=== PATIENT | male | born 1950 | race Caucasian/White ===

== ENCOUNTER 2023-07-11 14:33 | Outpatient (AMB) | payer MEDICARE, SELFPAY ==
[2023-07-11 14:40] VITALS: BP 130/70; PULSE 71; O2SAT 99; BMI 33.7
--- NOTE | 2023-07-11 14:40 | HO.NEPHOV ---
HPI HPI Comments History of Present Illness Details I would the privilege of seeing Kulwinder in consultation for his CKD and hypertension. He is known to have hypertension for a long time. He has not a diabetic. He has dyslipidemia and is on statins. He had extensive workup and a secondary etiology was ruled out for his hypertension. He has diastolic dysfunction. He never had any coronary artery disease, CVA, congestive heart failure, known renal artery stenosis/ carotid stenosis or peripheral arterial disease. He claims to be compliant with his medications. He has not very strict with a low-sodium diet. He avoids excessive nonsteroidal anti-inflammatories. His last serum creatinine was 1.4. He denies any epistaxis, photosensitivity, new skin rashes, joint swellings, orthostatic symptoms, pedal edema or any other new systemic complaints. [facility] Medical History (Updated 07/12/23 @ 13:25 by Shade Hampton MD) Vitamin D deficiency Tubular adenoma of colon Chronic kidney disease, stage 3a Squamous cell carcinoma in situ Serrated polyp of colon RBBB Prediabetes DANIA (obstructive sleep apnea) Mild concentric left ventricular hypertrophy IFG (impaired fasting glucose) Hypogonadism male Hypertension Hyperlipidemia Hydrocele Granulomatous disease Diverticulitis Diastolic dysfunction Acute gastroenteritis Abdominal pain Surgical History S/P TURP (status post transurethral resection of prostate) H/O left knee surgery History of vasectomy Family History Mother CAD (coronary artery disease) Hypertension Brother Hypertension Valvular heart disease Social History (Updated 07/11/23 @ 14:42 by Dilcia Bautista MA) Alcohol intake: current Comment: Occasional Tobacco use type: Cigar and Pipe Vital Signs 07/11/23 14:40 Height 6 ft Weight 248 lb 4 oz BMI 33.7 BP 130/70 Blood Pressure Location Lt brachial Position Sitting Pulse 71 Pulse Source Pulse Oximeter Pulse Oximetry (%) 99 Oxygen Delivery Method Room Air Physical Exam Vital Signs: Last Vital Signs Pulse 71 07/11/23 14:40 BP 160/86 H 07/11/23 14:40 Pulse Ox 99 07/11/23 14:40 Oxygen Delivery Method Room Air 07/11/23 14:40 BMI result Body Mass Index 33.7 Const General: comfortable and no acute distress Orientation/consciousness: patient oriented x3 HEENT Head: Yes normocephalic Mouth: Normal oral and palatal mucosa present Eyes EOM: EOMs intact bilaterally Neck Neck: Yes supple Resp Auscultation: clear to auscultation bilaterally Cardio Jugular venous distension: no JVD Rate: regular rate GI Palpation (GI): Soft to palpation Auscultation: normal bowel sounds General: Yes no CVA tenderness Back/Spine/Pelvis Back: no CVA tenderness Skin General skin exam: no rashes or lesions noted Neuro General: patient oriented x3 and moves all extremities Extrem General: Yes no pedal edema Assessment & Plan Assessment & Plan (1) Hypertension: Code(s): I10 - Essential (primary) hypertension Qualifiers: Hypertension type: primary hypertension Qualified Code(s): I10 - Essential (primary) hypertension (2) Chronic kidney disease, stage 3a: Code(s): N18.31 - Chronic kidney disease, stage 3a Plan Kulwinder is known to have CKD stage 3 and hypertension for some time. His renal functions are currently stable. Has been extensively investigated and a secondary etiology for hypertension was ruled out. He needs to lose weight. He has dyslipidemia and is on statins. He is tolerating losartan, amlodipine and chlorthalidone well. He avoids nonsteroidal anti-inflammatories and maintain good hydration. He has a prediabetic. I had not make any medication changes today but rather discussed with him in extensive detail about his CKD, hypertension, its management and follow-up strategies. Follow-up blood work and urine studies ordered. All questions answered. Follow-up given. Orders: Orders Calcium 07/11/23 I10 - Essential (primary) hypertension, N18.31 - Chronic kidney disease, stage 3a Creatinine 07/11/23 I10 - Essential (primary) hypertension, N18.31 - Chronic kidney disease, stage 3a Electrolytes 07/11/23 I10 - Essential (primary) hypertension, N18.31 - Chronic kidney disease, stage 3a Blood Urea Nitrogen 07/11/23 I10 - Essential (primary) hypertension, N18.31 - Chronic kidney disease, stage 3a Protein Creatinine Ratio, Ur 07/11/23 I10 - Essential (primary) hypertension, N18.31 - Chronic kidney disease, stage 3a Coding Level of Care Code New Pt Level 4 (79280) Diagnoses Primary hypertension I10 Hypertension type: primary hypertension Chronic kidney disease, stage 3a N18.31 Results Reviewed Nephrology Results: No Data to Display
== END 2023-07-11 15:13 | disposition home or self-care (01) ==
PROVIDERS: Referring Provider Nurse Practitioner Gerontology; Visit Provider Internal Medicine Nephrology
DX: I10 Essential (primary) hypertension (principal); N18.31 Chronic kidney disease, stage 3a
CPT/HCPCS: 99204

== ENCOUNTER → 2023-07-11 14:33 | Outpatient (BNVA) | payer MEDICARE, SELFPAY | PROVIDERS: Referring Provider Nurse Practitioner Gerontology; Visit Provider Internal Medicine Nephrology | DX: I12.9 Hypertensive chronic kidney disease with stage 1 through stage 4 chronic kidney disease, or unspecified chronic kidney disease (principal); N18.31 Chronic kidney disease, stage 3a | CPT/HCPCS: 99202 ==

== ENCOUNTER 2023-10-10 13:23 | Outpatient (AMB) | payer MEDICARE, SELFPAY ==
--- NOTE | 2023-10-10 13:38 | HO.NEPHOV_ITS ---
Vital Signs 10/10/23 13:40 Height 6 ft Weight 245 lb 6 oz BMI 33.3 BP 120/74 Blood Pressure Location Lt brachial Position Sitting Pulse 75 Pulse Source Pulse Oximeter Pulse Oximetry (%) 95 Oxygen Delivery Method Room Air Intake Visit Reasons: 3 mon follow up/ Confirmed Mixer Diamond Powder Required: No Accompanied by: Self / Same As Patient Allergies lisinopril Allergy (Verified 10/10/23 13:42) Unknown HPI Comments Details: I would the privilege of seeing Kulwinder in consultation for his CKD and hypertension. He is known to have hypertension for a long time. He has not a diabetic. He has dyslipidemia and is on statins. He had extensive workup and a secondary etiology was ruled out for his hypertension. He has diastolic dysfunction. He never had any coronary artery disease, CVA, congestive heart failure, known renal artery stenosis/ carotid stenosis or peripheral arterial disease. He claims to be compliant with his medications. He has not very strict with a low-sodium diet. He avoids excessive nonsteroidal anti- inflammatories. His last serum creatinine was 1.4. He denies any epistaxis, photosensitivity, new skin rashes, joint swellings, orthostatic symptoms, pedal edema or any other new systemic complaints [facility] Medical History (Updated 07/12/23 @ 13:25 by Shade Hampton MD) Vitamin D deficiency Tubular adenoma of colon Chronic kidney disease, stage 3a Squamous cell carcinoma in situ Serrated polyp of colon RBBB Prediabetes DANIA (obstructive sleep apnea) Mild concentric left ventricular hypertrophy IFG (impaired fasting glucose) Hypogonadism male Hypertension Hyperlipidemia Hydrocele Granulomatous disease Diverticulitis Diastolic dysfunction Acute gastroenteritis Abdominal pain Surgical History S/P TURP (status post transurethral resection of prostate) H/O left knee surgery History of vasectomy Family History Mother CAD (coronary artery disease) Hypertension Brother Hypertension Valvular heart disease Social History Alcohol intake: current Comment: Occasional Tobacco use type: Cigar and Pipe Physical Exam Vital Signs: Last Vital Signs Pulse 75 10/10/23 13:40 BP 120/74 10/10/23 13:40 Pulse Ox 95 10/10/23 13:40 Oxygen Delivery Method Room Air 10/10/23 13:40 BMI result Body Mass Index 33.3 Const General: comfortable and no acute distress Orientation/consciousness: patient oriented x3 HEENT Head: Yes normocephalic Mouth: Normal oral and palatal mucosa present Eyes EOM: EOMs intact bilaterally Neck Neck: Yes supple Resp Auscultation: clear to auscultation bilaterally Cardio Jugular venous distension: no JVD Rate: regular rate GI Palpation (GI): Soft to palpation Auscultation: normal bowel sounds General: Yes no CVA tenderness Back/Spine/Pelvis Back: no CVA tenderness Skin General skin exam: no rashes or lesions noted Neuro General: patient oriented x3 and moves all extremities Extrem General: Yes no pedal edema Results Reviewed Nephrology Results: No Data to Display Assessment & Plan Assessment & Plan (1) Chronic kidney disease, stage 3a: Code(s): N18.31 - Chronic kidney disease, stage 3a Category: Medical (2) Hypertension: Code(s): I10 - Essential (primary) hypertension Category: Medical Qualifiers: Hypertension type: primary hypertension Qualified Code(s): I10 - Essential (primary) hypertension Plan Kulwinder is known to have CKD stage 3 and hypertension for some time. His renal functions had been stable. Has been extensively investigated and a secondary etiology for hypertension was ruled out. He needs to lose weight. He has dyslipidemia and is on statins. He is tolerating losartan, amlodipine and chlorthalidone well. He avoids nonsteroidal anti-inflammatories and maintain good hydration. He has a prediabetic. I had not make any medication changes today but rather discussed with him in extensive detail about his CKD, hypertension, its management and follow-up strategies. Follow-up blood work ordered. All questions answered. Follow-up given Orders: Orders Electrolytes Today I10 - Essential (primary) hypertension, N18.31 - Chronic kidney disease, stage 3a Creatinine Today I10 - Essential (primary) hypertension, N18.31 - Chronic kidney disease, stage 3a Blood Urea Nitrogen Today I10 - Essential (primary) hypertension, N18.31 - Chronic kidney disease, stage 3a Coding Level of Care Code Est Pt Level 4 (08624) Diagnoses Chronic kidney disease, stage 3a N18.31 Primary hypertension I10 Hypertension type: primary hypertension
[2023-10-10 13:40] VITALS: BP 120/74; PULSE 75; O2SAT 95; BMI 33.3
== END 2023-10-10 13:59 | disposition home or self-care (01) ==
PROVIDERS: Visit Provider Internal Medicine Nephrology
DX: N18.31 Chronic kidney disease, stage 3a (principal); I10 Essential (primary) hypertension
CPT/HCPCS: 99214

== ENCOUNTER 2023-10-10 13:59 | Outpatient (REF) | payer MEDICARE, SELFPAY ==
[2023-10-10 17:29] LABS: Anion Gap 14 (12-20); Blood Urea Nitrogen 30 mg/dL (9-16); Carbon Dioxide 27 mmol/L (22-29); Chloride 103 mmol/L (96-108); Estimated Glomerular Filt Rate 46; Potassium 3.1 mmol/L (3.3-5.1); Sodium 141 mmol/L (135-145)
== END 2023-10-10 14:00 | disposition home or self-care (01) ==
LOC: HO.HKASLDS 13:59
PROVIDERS: Visit Provider Internal Medicine Nephrology
DX: I12.9 Hypertensive chronic kidney disease with stage 1 through stage 4 chronic kidney disease, or unspecified chronic kidney disease (principal); N18.31 Chronic kidney disease, stage 3a; Z79.899 Other long term (current) drug therapy
CPT/HCPCS: 36415; 80051; 82565; 84520; 99212

== ENCOUNTER 2023-12-04 10:52 | Outpatient (REF) | payer MEDICARE, SELFPAY ==
[2023-12-04 14:29] LABS: Anion Gap 17 (12-20); Blood Urea Nitrogen 27 mg/dL (9-16); Calcium 9.6 mg/dL (8.4-10.2); Carbon Dioxide 29 mmol/L (22-29); Chloride 102 mmol/L (96-108); Estimated Glomerular Filt Rate 55; Potassium 2.9 mmol/L (3.3-5.1); Sodium 145 mmol/L (135-145)
== END 2023-12-04 10:53 | disposition home or self-care (01) ==
LOC: HO.WFDLDS 10:52
PROVIDERS: Visit Provider Internal Medicine Nephrology
DX: I12.9 Hypertensive chronic kidney disease with stage 1 through stage 4 chronic kidney disease, or unspecified chronic kidney disease (principal); N18.31 Chronic kidney disease, stage 3a
CPT/HCPCS: 36415; 80051; 82310; 82565; 84520

== ENCOUNTER 2024-04-18 09:46 | Outpatient (AMB) | payer MEDICARE, SELFPAY ==
--- NOTE | 2024-04-18 09:54 | HO.NEPHOV ---
Vital Signs 04/18/24 09:56 Height 6 ft Weight 238 lb 4 oz BMI 32.3 BP 116/62 Blood Pressure Location Lt brachial Position Sitting Pulse 79 Pulse Source Pulse Oximeter Pulse Oximetry (%) 96 Oxygen Delivery Method Room Air Intake Visit Reasons: 3 mon follow up-Conf Supervisor Assembly Required: No Accompanied by: Self / Same As Patient Allergies lisinopril Allergy (Verified 04/18/24 09:57) Unknown HPI Comments Details: Kulwinder was seen for his CKD and hypertension. He is known to have hypertension for a long time. He has not a diabetic. He has dyslipidemia and is on statins. He had extensive workup and a secondary etiology was ruled out for his hypertension. He has diastolic dysfunction. He never had any coronary artery disease, CVA, congestive heart failure, known renal artery stenosis/ carotid stenosis or peripheral arterial disease. He claims to be compliant with his medications. He avoids excessive nonsteroidal anti-inflammatories. His last serum creatinine was 1.3. He had been getting intermittent dizziness with all these BP medications. His serum potassium is better. [facility] Medical History (Updated 12/05/23 @ 09:01 by Shade Hampton MD) Vitamin D deficiency Tubular adenoma of colon Chronic kidney disease, stage 3a Squamous cell carcinoma in situ Serrated polyp of colon RBBB Prediabetes DANIA (obstructive sleep apnea) Mild concentric left ventricular hypertrophy IFG (impaired fasting glucose) Hypogonadism male Hypertension Hyperlipidemia Hydrocele Granulomatous disease Diverticulitis Diastolic dysfunction Acute gastroenteritis Abdominal pain Surgical History S/P TURP (status post transurethral resection of prostate) H/O left knee surgery History of vasectomy Family History Mother CAD (coronary artery disease) Hypertension Brother Hypertension Valvular heart disease Social History Alcohol intake: current Comment: Occasional Tobacco use type: Cigar and Pipe Review of Systems Const All systems reviewed & are unremarkable except as noted in HPI and below Physical Exam Vital Signs: Last Vital Signs Pulse 79 04/18/24 09:56 BP 116/62 04/18/24 09:56 Pulse Ox 96 04/18/24 09:56 Oxygen Delivery Method Room Air 04/18/24 09:56 BMI result Body Mass Index 32.3 Const General: comfortable and no acute distress Orientation/consciousness: patient oriented x3 HEENT Head: Yes normocephalic Mouth: Normal oral and palatal mucosa present Eyes EOM: EOMs intact bilaterally Neck Neck: Yes supple Resp Auscultation: clear to auscultation bilaterally Cardio Jugular venous distension: no JVD Rate: regular rate GI Palpation (GI): Soft to palpation Auscultation: normal bowel sounds General: Yes no CVA tenderness Back/Spine/Pelvis Back: no CVA tenderness Skin General skin exam: no rashes or lesions noted Neuro General: patient oriented x3 and moves all extremities Extrem General: Yes no pedal edema Assessment & Plan Assessment & Plan (1) Chronic kidney disease, stage 3a: Code(s): N18.31 - Chronic kidney disease, stage 3a Category: Medical (2) Hypertension: Code(s): I10 - Essential (primary) hypertension Category: Medical Qualifiers: Hypertension type: primary hypertension Qualified Code(s): I10 - Essential (primary) hypertension Plan Kulwinder has CKD stage 3 and hypertension for some time. His renal functions had been stable. Has been extensively investigated and a secondary etiology for hypertension was ruled out. He needs to lose weight. He has dyslipidemia and is on statins. He is tolerating losartan, amlodipine and chlorthalidone well. I reduced his Chlortahlidone to 12.5 mg given H/O hypokalemia and intermittent dizziness. He avoids nonsteroidal anti-inflammatories and maintain good hydration. He has a prediabetic. Follow-up blood work ordered. All questions answered. Orders: Orders Creatinine Today I10 - Essential (primary) hypertension, N18.31 - Chronic kidney disease, stage 3a Blood Urea Nitrogen Today I10 - Essential (primary) hypertension, N18.31 - Chronic kidney disease, stage 3a Calcium Today I10 - Essential (primary) hypertension, N18.31 - Chronic kidney disease, stage 3a Electrolytes Today I10 - Essential (primary) hypertension, N18.31 - Chronic kidney disease, stage 3a Uric Acid Today I10 - Essential (primary) hypertension, N18.31 - Chronic kidney disease, stage 3a Coding Level of Care Code Est Pt Level 4 (70715) Diagnoses Chronic kidney disease, stage 3a N18.31 Primary hypertension I10 Hypertension type: primary hypertension
[2024-04-18 09:56] VITALS: BP 116/62; PULSE 79; O2SAT 96; BMI 32.3
== END 2024-04-18 10:21 | disposition home or self-care (01) ==
LOC: HO.HKAS 09:47
PROVIDERS: Visit Provider Internal Medicine Nephrology
DX: N18.31 Chronic kidney disease, stage 3a (principal); I10 Essential (primary) hypertension
CPT/HCPCS: 99214

== ENCOUNTER → 2024-04-18 09:46 | Outpatient (BNVA) | payer MEDICARE, SELFPAY | PROVIDERS: Visit Provider Internal Medicine Nephrology | DX: I12.9 Hypertensive chronic kidney disease with stage 1 through stage 4 chronic kidney disease, or unspecified chronic kidney disease (principal); N18.31 Chronic kidney disease, stage 3a; E78.5 Hyperlipidemia, unspecified | CPT/HCPCS: 99212 ==

== ENCOUNTER 2024-10-01 12:34 | Outpatient (REF) | payer MEDICARE, SELFPAY ==
--- OUTSIDE RECORDS SUMMARY | 2024-10-01 14:55 | XMS_ITS | Encounter Summary ---
Author Organization [facility] Address [address] [place] [address] Phone Care Team Providers Care Video Coordinator Name Role Phone Grace Rodriguez NP Primary Care Provider [phone] Encounter Details Date Type Department Care Team (Late st Contact Info) Description 03/15/2022 Documentation Only [facility] [address] [place] [id number] Ida Goodson Social History Tobacco Use Types Packs/Day Years Used Date Smoking Tobacco: Never Smokeless Tobacco: Never Alcohol Use Standard Drinks/Week Comments Yes 0 (1 standard drink = 0.6 oz pur e alcohol) occasionally Sex and Gender Information Value Date Recorded Sex Assigned at Not on file Legal Sex Male 12:37 PM EDT Gender Identity Not on file Sexual Orientation Not on file documented as of this encounter Plan of Treatment Not on file documented as of this encounter Visit Diagnoses Not on filedocumented in this encounter Care Teams Video Coordinator Relationship Specialty Start Date End Date Grace Rodriguez NP [address] [place] [address] PCP - General Nurse Practitioner 11/22/21 documented as of this encounter
--- OUTSIDE RECORDS SUMMARY | 2024-10-01 14:55 | XMS_ITS | Clinical Summary ---
Author Organization [facility] Address [address] [place] [address] Phone Care Team Providers Care Database Manager Name Role Phone Grace Rodriguez NP Primary Care Provider [phone] Allergies Active Allergy Reactions Criticality Noted Date Comments Lisinopril Other (see comments) 01/17/2022 Medications omeprazole (PriLOSEC) [address] capsule omeprazole 40 mg capsule,delayed release 2 Active cholecalciferol (VITAMIN D-3 SUPER STRENGTH) 50 MCG (2000 UT) tablet Vitamin D3 50 mcg (2,000 unit) tablet Take by oral route. Active omega-3 (FISH OIL) 1000 MG capsule Take by mouth 1 (one) time each day Active atorvastatin (LIPITOR) 10 MG tablet Take 10 mg by mouth 1 (one) time each day 3 Active losartan (Cozaar) 100 MG tabletIndicatio ns:Hypertensive disorder,Chroni c kidney disease, stage 2 (mild) Take 1 tablet (100 mg total) by mouth 1 (one) time each day 90 tablet 3 3 Active chlorthalidone 25 MG tabletIndicatio ns:Hypertensive disorder,Chroni c kidney disease, stage 2 (mild) Take 1 tablet (25 mg total) by mouth 1 (one) time each day 90 tablet 3 3 Active amLODIPine (NORVASC) 10 MG tabletIndicatio ns:Hypertensive disorder Take 1 tablet (10 mg total) by mouth 1 (one) time each day 90 tablet 3 12/05/202 3 Active Active Problems Problem Noted Date Diagnosed Date Hypogonadism 01/17/2022 Hypertensive disorder 01/17/2022 Hyperlipidemia 01/17/2022 Abdominal pain 01/17/2022 Left ventricular diastolic dysfunction 4 Impaired fasting glycemia 02/14/2013 Resolved Problems Problem Noted Date Diagnosed Date Resolved Date Granulomatous disorder 01/17/202205/12 Acute gastroenteritis 01/17/20222021 Cardiac murmur 08/24/2015 01/17/2022 Immunizations Immunization Administration Dates Next Due Influenza, Unspecified 04/03/2021,03/31/2020,06/2017,02/26/2016 Moderna SARS-COV-2 05/29/2021,09/10/2020, 021 Pneumococcal Conjugate 13-Valent 08/25/2016 Shingrix 06/06/2019,04/05/2019 Td, Unspecified 04/01/2017 Tdap 07/01/2009 Zoster 09/11/2013 Social History Tobacco Use Types Packs/Day Years Used Date Smoking Tobacco: Never Smokeless Tobacco: Never Tobacco Cessation:Counseling Given: Not Answered Alcohol Use Standard Drinks/Week Comments Yes 0 (1 standard drink = 0.6 oz pur e alcohol) occasionally Sex and Gender Information Value Date Recorded Sex Assigned at Not on file Legal Sex Male 12:37 PM EDT Gender Identity Not on file Sexual Orientation Not on file Last Filed Vital Signs Vital Sign Reading Time Taken Comments Blood Pressure 128/72 12/06/2022 3:57 PM EDT Pulse 75 12/06/2022 3:57 PM EDT Temperature - - Respiratory Rate - - Oxygen Saturation 96% 12/06/2022 3:57 PM EDT Inhaled Oxygen Concentration - - Weight 112 kg (246 lb) 12/06/2022 3:57 PM EDT Height 182.9 cm (6') 12/06/2022 3:57 PM EDT Body Mass Index 33.36 12/06/2022 3:57 PM EDT Plan of Treatment Health Maintenance Due Date Last Done Comments Colorectal Cancer Screening: Annual FOBT 12/04/1999 Colorectal Cancer Screening: Colonoscopy 12/04/1999 Colorectal Cancer Screening: Sigmoidoscopy 12/04/1999 Pneumococcal Vaccine: 50+ Years (2 of 2 - PPSV23) 10/20/2016 08/25/2016 Influenza Vaccine (Season Ended) 2025 04/03/2021, 03/31/2020, 03/12/2018, Additional history exists Hepatitis B Vaccine Aged Out No longe r eligible based on patient's age to complete this topic Insurance Medicare [facility] Medicare [facility] Care Teams Database Manager Relationship Specialty Start Date End Date Grace Rodriguez NP [address] [place] [id number] PCP - General Nurse Practitioner 11/22/21
--- OUTSIDE RECORDS SUMMARY | 2024-10-01 14:55 | XMS_ITS | Encounter Summary ---
Author Organization [facility] Address [address] [place] [address] Phone Care Team Providers Care Wool Classer Name Role Phone Grace Rodriguez NP Primary Care Provider [phone] Encounter Details Date Type Department Care Team (Late st Contact Info) Description 03/15/2022 Documentation Only [facility] [address] [place] [phone] Ida Goodson Social History Tobacco Use Types [...] on filedocumented in this encounter Care Teams Wool Classer Relationship Specialty Start Date End Date Grace Rodriguez NP [address] [place] [address] PCP - General Nurse Practitioner 11/22/21 documented as of this encounter
[2024-10-01 18:53] LABS: Anion Gap 13 (12-20); Blood Urea Nitrogen 25 mg/dL (9-16); Carbon Dioxide 26 mmol/L (22-29); Chloride 104 mmol/L (96-108); Estimated Glomerular Filt Rate > 60; Potassium 3.2 mmol/L (3.3-5.1); Sodium 140 mmol/L (135-145)
== END 2024-10-01 12:35 | disposition home or self-care (01) ==
LOC: HO.HKASLDS 12:34
PROVIDERS: Visit Provider Internal Medicine Nephrology
DX: E87.6 Hypokalemia (principal); I10 Essential (primary) hypertension; N18.31 Chronic kidney disease, stage 3a
CPT/HCPCS: 36415; 80051; 82565; 84520

== ENCOUNTER 2024-12-09 09:43 | Outpatient (REF) | payer MEDICARE, SELFPAY ==
--- OUTSIDE RECORDS SUMMARY | 2024-12-09 10:08 | XMS_ITS | Encounter Summary ---
Author Organization [facility] Address [address] [place] [address] Phone Care Team Providers Care Refractory Technician Name Role Phone Grace Rodriguez NP Primary Care Provider [phone] Encounter Details Date Type Department Care Team (Late st Contact Info) Description 03/15/2022 Documentation Only [facility] [address] [place] [phone] Ida Goodson Social History Tobacco Use Types [...] on filedocumented in this encounter Care Teams Refractory Technician Relationship Specialty Start Date End Date Grace Rodriguez NP [address] [place] [address] PCP - General Nurse Practitioner 11/22/21 documented as of this encounter
[2024-12-09 15:19] LABS: Anion Gap 13 (12-20); Blood Urea Nitrogen 24 mg/dL (9-16); Calcium 9.3 mg/dL (8.4-10.2); Carbon Dioxide 27 mmol/L (22-29); Chloride 106 mmol/L (96-108); Estimated Glomerular Filt Rate 55; Potassium 3.7 mmol/L (3.3-5.1); Sodium 142 mmol/L (135-145); Uric Acid 5.9 mg/dL (3.4-7.0)
== END 2024-12-09 09:44 | disposition home or self-care (01) ==
LOC: HO.HKASLDS 09:43
PROVIDERS: Visit Provider Internal Medicine Nephrology
DX: N18.31 Chronic kidney disease, stage 3a (principal); I10 Essential (primary) hypertension
CPT/HCPCS: 36415; 80051; 82310; 82565; 84520; 84550

== ENCOUNTER 2024-12-17 13:04 | Outpatient (AMB) | payer MEDICARE, SELFPAY ==
--- NOTE | 2024-12-17 13:22 | HO.NEPHOV ---
Vital Signs 12/17/24 13:23 Height 6 ft Weight 246 lb BMI 33.4 BP 130/68 Blood Pressure Location Lt brachial Position Sitting Pulse 86 Pulse Source Pulse Oximeter Pulse Oximetry (%) 95 Oxygen Delivery Method Room Air Intake Visit Reasons: 3 mon follow up-[facility] Candle Wrapper Required: No Accompanied by: Self / Same As Patient Allergies lisinopril Allergy (Verified 12/17/24 13:25) Unknown HPI Comments Details: Kulwinder was seen for his CKD and hypertension. He is known to have hypertension for a long time. He has not a diabetic. He has dyslipidemia and is on statins. He had extensive workup and a secondary etiology was ruled out for his hypertension. He has diastolic dysfunction. He never had any coronary artery disease, CVA, congestive heart failure, known renal artery stenosis/ carotid stenosis or peripheral arterial disease. He claims to be compliant with his medications. He avoids excessive nonsteroidal anti-inflammatories. His last serum creatinine is 1.28. His serum potassium is better. [facility] Medical History (Updated 12/05/23 @ 09:01 by Shade Hampton MD) Vitamin D deficiency Tubular adenoma of colon Chronic kidney disease, stage 3a Squamous cell carcinoma in situ Serrated polyp of colon RBBB Prediabetes DANIA (obstructive sleep apnea) Mild concentric left ventricular hypertrophy IFG (impaired fasting glucose) Hypogonadism male Hypertension Hyperlipidemia Hydrocele Granulomatous disease Diverticulitis Diastolic dysfunction Acute gastroenteritis Abdominal pain Surgical History S/P TURP (status post transurethral resection of prostate) H/O left knee surgery History of vasectomy Family History Mother CAD (coronary artery disease) Hypertension Brother Hypertension Valvular heart disease Social History Alcohol intake: current Comment: Occasional Tobacco use type: Cigar and Pipe Review of Systems Const All systems reviewed & are unremarkable except as noted in HPI and below Physical Exam Vital Signs: Last Vital Signs Pulse 86 12/17/24 13:23 BP 130/68 12/17/24 13:23 Pulse Ox 95 12/17/24 13:23 Oxygen Delivery Method Room Air 12/17/24 13:23 BMI result Body Mass Index 33.4 Const General: comfortable and no acute distress Orientation/consciousness: patient oriented x3 HEENT Head: Yes normocephalic Mouth: Normal oral and palatal mucosa present Eyes EOM: EOMs intact bilaterally Neck Neck: Yes supple Resp Auscultation: clear to auscultation bilaterally Cardio Jugular venous distension: no JVD Rate: regular rate GI Palpation (GI): Soft to palpation Auscultation: normal bowel sounds General: Yes no CVA tenderness Back/Spine/Pelvis Back: no CVA tenderness Skin General skin exam: no rashes or lesions noted Neuro General: patient oriented x3 and moves all extremities Extrem General: Yes no pedal edema Results Reviewed Nephrology Results: Sodium, (135-145) 142 mmol/L 12/09/24 Potassium, (3.3-5.1) 3.7 mmol/L 12/09/24 Chloride, (96-108) 106 mmol/L 12/09/24 Carbon Dioxide, (22-29) 27 mmol/L 12/09/24 BUN, (9-16) 24 mg/dL H 12/09/24 Creatinine, (0.5-1.4) 1.28 mg/dL 12/09/24 Calcium, (8.4-10.2) 9.3 mg/dL 12/09/24 Assessment & Plan Assessment & Plan (1) Chronic kidney disease, stage 3a: Code(s): N18.31 - Chronic kidney disease, stage 3a Category: Medical (2) Hypertension: Code(s): I10 - Essential (primary) hypertension Category: Medical Qualifiers: Hypertension type: primary hypertension Qualified Code(s): I10 - Essential (primary) hypertension Plan Kulwinder has CKD stage 3 and hypertension for some time. His renal functions had been stable. Has been extensively investigated and a secondary etiology for hypertension was ruled out. He needs to lose weight. He has dyslipidemia and is on statins. He is tolerating losartan, amlodipine and chlorthalidone well. I reduced his Chlortahlidone to 12.5 mg when he had H/O hypokalemia and intermittent dizziness. He avoids nonsteroidal anti-inflammatories and maintain good hydration. He has a prediabetic. Follow-up blood work ordered. All questions answered Coding Level of Care Code Est Pt Level 4 (58347) Diagnoses Chronic kidney disease, stage 3a N18.31 Primary hypertension I10 Hypertension type: primary hypertension
[2024-12-17 13:23] VITALS: BP 130/68; PULSE 86; O2SAT 95; BMI 33.4
--- OUTSIDE RECORDS SUMMARY | 2024-12-17 13:43 | XMS_ITS | Encounter Summary ---
Author Organization [facility] Address [address] [place] [address] Phone Care Team Providers Care Retread Supervisor Name Role Phone Grace Rodriguez NP Primary Care Provider [phone] Encounter Details Date Type Department Care Team (Late st Contact Info) Description 03/15/2022 Documentation Only [facility] [address] [place] [phone] Ida Goodson Social History Tobacco Use Types [...] on filedocumented in this encounter Care Teams Retread Supervisor Relationship Specialty Start Date End Date Grace Rodriguez NP [address] [place] [address] PCP - General Nurse Practitioner 11/22/21 documented as of this encounter
== END 2024-12-17 13:43 | disposition home or self-care (01) ==
PROVIDERS: Visit Provider Internal Medicine Nephrology
DX: N18.31 Chronic kidney disease, stage 3a (principal); I10 Essential (primary) hypertension
CPT/HCPCS: 99214

== ENCOUNTER → 2024-12-17 13:04 | Outpatient (BNVA) | payer MEDICARE, SELFPAY | PROVIDERS: Visit Provider Internal Medicine Nephrology | DX: I12.9 Hypertensive chronic kidney disease with stage 1 through stage 4 chronic kidney disease, or unspecified chronic kidney disease (principal); N18.31 Chronic kidney disease, stage 3a; E78.5 Hyperlipidemia, unspecified; Z79.899 Other long term (current) drug therapy | CPT/HCPCS: 99212 ==

== ENCOUNTER 2025-03-17 13:39 | Outpatient (REF) | payer MEDICARE, SELFPAY ==
--- OUTSIDE RECORDS SUMMARY | 2025-03-17 15:59 | XMS_ITS | Encounter Summary ---
Author Organization [facility] Address [address] [place] [address] Phone Care Team Providers Care E Commerce Marketing Manager Name Role Phone Grace Rodriguez NP Primary Care Provider [phone] Encounter Details Date Type Department Care Team (Late st Contact Info) Description 03/15/2022 Documentation Only [facility] [address] [place] [phone] Ida Goodson Social History Tobacco Use Types [...] on filedocumented in this encounter Care Teams E Commerce Marketing Manager Relationship Specialty Start Date End Date Grace Rodriguez NP [address] [place] [address] PCP - General Nurse Practitioner 11/22/21 documented as of this encounter
--- OUTSIDE RECORDS SUMMARY | 2025-03-17 15:59 | XMS_ITS | Encounter Summary ---
Author Organization [facility] Address [address] [place] [address] Phone Care Team Providers Care Residential Support Worker Name Role Phone Grace Rodriguez NP Primary Care Provider [phone] Encounter Details Date Type Department Care Team (Late st Contact Info) Description 03/15/2022 Documentation Only [facility] [address] [place] [phone] Ida Goodson Social History Tobacco Use Types [...] on filedocumented in this encounter Care Teams Residential Support Worker Relationship Specialty Start Date End Date Grace Rodriguez NP [address] [place] [address] PCP - General Nurse Practitioner 11/22/21 documented as of this encounter
--- OUTSIDE RECORDS SUMMARY | 2025-03-17 15:59 | XMS_ITS | Clinical Summary ---
Author Organization [facility] Address [address] [place] [address] Phone Care Team Providers Care Full Stack Php Developer Name Role Phone Grace Rodriguez NP Primary Care Provider [phone] Allergies Active Allergy Reactions Criticality Noted Date [...] Vaccine: 50+ Years (2 of 2 - PPSV23, PCV20, or PCV21) 10/20/2016 08/25/2016 Influenza Vaccine (#1) 2025 , 03/31/2020, 03/12/2018, Additional history exists Hepatitis B Vaccine Aged Out No longe r eligible based on patient's age to complete this topic Insurance Medicare [facility] Medicare [facility] Care Teams Full Stack Php Developer Relationship Specialty Start Date End Date Grace Rodriguez NP [address] [place] [address] PCP - General Nurse Practitioner 11/22/21
[2025-03-17 18:38] LABS: Anion Gap 12 (12-20); Blood Urea Nitrogen 22 mg/dL (9-16); Carbon Dioxide 29 mmol/L (22-29); Chloride 104 mmol/L (96-108); Estimated Glomerular Filt Rate 59; Potassium 3.7 mmol/L (3.3-5.1); Sodium 141 mmol/L (135-145)
== END 2025-03-17 13:40 | disposition home or self-care (01) ==
LOC: HO.HKASLDS 13:39
PROVIDERS: PCP Nurse Practitioner; Visit Provider Internal Medicine Nephrology
DX: I12.9 Hypertensive chronic kidney disease with stage 1 through stage 4 chronic kidney disease, or unspecified chronic kidney disease (principal); E87.6 Hypokalemia; N18.31 Chronic kidney disease, stage 3a
CPT/HCPCS: 36415; 80051; 82565; 84520